=== PATIENT | female | born 1960 | race Two or more races ===

== ENCOUNTER 2020-06-22 19:25 | Emergency (ER) | payer BC, OTHER ==
[~2020-06-22] VITALS: Ht 175.3 cm; Wt 81.6 kg
[2020-06-22 19:51] VITALS: BP 128/74
--- NOTE | 2020-06-22 19:52 | NUR ---
PT AAOX4. AMBULATORY WITH STEADY GAIT. BIBSELF C/O OF HAVING UTI SYMPTOMS, STATED SHE COMPLETED PO MACROBID. PLACED IN BED 11 ON MONITOR AND PULSE OX. PA AT BEDSIDE FOR EVAL. AWAITING ORDERS. NO ACUTE DISTRESS NOTED.
--- NOTE | 2020-06-22 19:53 | NUR ---
URINE COLLECTED AND SENT TO LAB
[2020-06-22 19:54] LABS: APPEARANCE,URINE Clear (CLEAR); BILIRUBIN,URINE Negative (NEGATIVE); BLOOD, URINE Negative Ery/uL (NEGATIVE); COLOR,URINE Yellow (YELLOW); KETONES,URINE Trace (NEGATIVE); LEUKOCYTE ESTERASE ,URINE Small (NEGATIVE); NITRITE, URINE Negative (NEGATIVE); PH,URINE 5.5 (5.0-8.0); PROTEIN,URINE Trace mg/dl (NEGATIVE); UGLUCOSE Negative (NEGATIVE); UROBILINOGEN,URINE 0.2 EU/dL (0.2)
[2020-06-22 19:55] LABS: BACTERIA,URINE Few /HPF (None Seen); RBC,URINE 0-2 /HPF (0-2); SQUAMOUS EPITHELIAL CELL,UR Few /HPF (None Seen)
== END 2020-06-22 20:50 | disposition home or self-care (01) ==
LOC: ER 19:27
DX: M79.10 Myalgia, unspecified site (principal); R30.0 Dysuria; I10 Essential (primary) hypertension; F41.9 Anxiety disorder, unspecified
CPT/HCPCS: 81000-TC